=== PATIENT | male | born 1990 | race Caucasian/White ===

== ENCOUNTER 2022-06-04 07:05 | Emergency (ER) | payer MEDICAID ==
[~2022-06-04] VITALS: Ht 180.3 cm; Wt 75.0 kg
[~2022-06-04 07:05] MED LIST: CLIN-97 PO
[2022-06-04 07:12] VITALS: BP 156/112
== END 2022-06-04 09:15 | disposition left against medical advice (07) ==
LOC: ER 07:06
DX: R10.9 Unspecified abdominal pain (principal); Z53.21 Procedure and treatment not carried out due to patient leaving prior to being seen by health care provider